=== PATIENT | male | born 1990 | race Hispanic/Latino ===

== ENCOUNTER 2024-04-11 20:10 | Inpatient (IN) | payer SELFPAY ==
[~2024-04-11] VITALS: Ht 162.6 cm; Wt 99.8 kg
[2024-04-11 22:16] LABS: BASOPHILS % 0.2 % (0.0-1.0); EOSINOPHILS # (AUTO) 0.1 (0.0-0.4); EOSINOPHILS % 0.3 % (0.0-6.0); HEMATOCRIT 49.7 % (38.2-49.6); HEMOGLOBIN 16.4 g/dL (14.0-18.0); LYMPHOCYTES # (AUTO) 2.4 (1.0-3.2); LYMPHOCYTES % 14.7 % (18.0-39.1); MEAN CORPUSCULAR HEMOGLOBIN 30.1 pg (28-32); MEAN CORPUSCULAR VOLUME 91.2 fL (81-99); NEUTROPHILS # (AUTO) 12.6 (2.1-6.9); NEUTROPHILS % 78.3 % (38.7-80.0); PLATELET COUNT 400 x10e3/uL (140-360); RED BLOOD COUNT 5.45 x10e6/uL (4.3-5.7); WHITE BLOOD COUNT 16.14 x10e3/uL (4.8-10.8)
[2024-04-11] MEDS: Morphine 4mg INJECTION 4 MG/ML INJ IV ONE (22:29)
[2024-04-11] MEDS: ACETAMINOPHEN 325 MG TAB PO ONE (22:29)
[2024-04-11] MEDS: SODIUM CHLORIDE 0.9% 1000ML 1,000 ML IV ONE (22:29)
[2024-04-11] MEDS: ONDANSETRON HCL INJ 2MG/ML 2ML 2 MG/ML VIAL IV STA (22:29)
[2024-04-11 22:30] LABS: ALBUMIN 3.8 g/dL (3.5-5.0); ALBUMIN/GLOBULIN RATIO 0.8 (0.8-2.0); ANION GAP 16.8 mmol/L (8-16); BILIRUBIN,TOTAL 0.5 mg/dL (0.2-1.2); CALCIUM 9.6 mg/dL (8.4-10.2); CREATININE, SERUM 0.86 mg/dL (0.72-1.25); POTASSIUM 3.8 mmol/L (3.5-5.1); TOTAL PROTEIN 8.7 g/dL (6.5-8.1)
[2024-04-11] MEDS ORDERED: IOPAMIDOL 370 MG/ML 100 ML INFUS..BTL INJ ONE (23:01)
[2024-04-12] VITALS (10 sets, daily range): BP systolic 125–149; BP diastolic 71–98; PULSE 75–96; RESP 16–19; TEMP 98.4–99.3; O2SAT 95–99
[2024-04-12 01:38] LABS: BILIRUBIN,URINE NEGATIVE (NEGATIVE); CLARITY,URINE CLEAR (CLEAR); COLOR,URINE YELLOW (YELLOW); GLUCOSE, URINE NEGATIVE (NEGATIVE); KETONES,URINE 1+ (NEGATIVE); LEUKOCYTE ESTERASE ,URINE NEGATIVE (NEGATIVE); NITRITE,URINE NEGATIVE (NEGATIVE); PH,URINE 5.5 (5 - 7); PROTEIN,URINE DIPSTICK NEGATIVE (NEGATIVE); URINE UROBILINOGEN 0.2 mg/dL (0.2 - 1)
[2024-04-12 01:40] LABS: BACTERIA,URINE RARE /HPF; RBC,URINE 0-5 /HPF (0-5); WBC,URINE (MAN) 0-5 /HPF (0-5)
[2024-04-12] MEDS: SODIUM CHLORIDE 0.9% 1000ML 1,000 ML IV SCH (02:08)
[2024-04-12] MEDS: Vancomycin IV 1 GM in SODIUM CHLORIDE 0.9% 250ML 250 ML IV SCH (02:08)
[2024-04-12] MEDS: Morphine 4mg INJECTION 4 MG/ML INJ IV PRN (06:29)
[2024-04-12] MEDS: ONDANSETRON HCL INJ 2MG/ML 2ML 2 MG/ML VIAL IV PRN (06:30)
[2024-04-12] MEDS: ACETAMINOPHEN 325 MG TAB PO PRN (11:35)
[2024-04-12] MEDS ORDERED: BENZONATATE 100 MG CAP PO PRN (12:30)
[2024-04-12] MEDS ORDERED: DIPHENHYDRAMINE HCL 25 MG CAP PO PRN (12:30)
[2024-04-12] MEDS ORDERED: DEXTROSE 50% SYRINGE 50 ML IV PRN (12:30)
[2024-04-12] MEDS ORDERED: HYDRALAZINE HCL 20 MG/ML VIAL IV PRN (12:30)
[2024-04-12] MEDS ORDERED: LIDOCAINE 4% PATCH TP PRN (12:30)
[2024-04-12] MEDS ORDERED: SIMETHICONE 80 MG CHEW PO PRN (12:30)
[2024-04-12] MEDS ORDERED: ACETAMINOPHEN 325 MG TAB PO PRN (12:30)
[2024-04-12] MEDS ORDERED: DOCUSATE SODIUM 100 MG CAP PO PRN (12:30)
[2024-04-12] MEDS ORDERED: POTASSIUM CHLORIDE 20 MEQ TAB CR PO PRN (12:30)
[2024-04-12] MEDS ORDERED: ALBUTEROL/IPRATROPIUM 3 ML NEB NEB PRN (12:30)
[2024-04-12] MEDS ORDERED: ONDANSETRON HCL INJ 2MG/ML 2ML 2 MG/ML VIAL IV PRN (13:15)
[2024-04-12] MEDS: HYDROCODONE/APAP 5MG-325MG TAB PO ONE (13:45)
[2024-04-12] MEDS ORDERED: SODIUM CHLORIDE 0.9% 1000ML 1,000 ML IV SCH (14:00)
[2024-04-12] MEDS: ENOXAPARIN SOD INJ 40 MG/0.4 ML SYR SC SCH (16:37)
[2024-04-12] MEDS: HYDROCODONE/APAP 5MG-325MG TAB PO PRN (16:38)
[2024-04-12] MEDS ORDERED: FENTANYL CITRATE/PF 100MCG/2 ML INJ ONE (19:44)
[2024-04-13] VITALS (9 sets, daily range): BP systolic 107–125; BP diastolic 64–95; PULSE 69–86; RESP 18–20; TEMP 97.5–98.4; O2SAT 97–100
[2024-04-13] MEDS: MELATONIN 5 MG TABLET PO PRN (00:12)
[2024-04-13 05:30] LABS: BASOPHILS % 0.3 % (0.0-1.0); EOSINOPHILS % 0.1 % (0.0-6.0); HEMATOCRIT 45.9 % (38.2-49.6); HEMOGLOBIN 14.9 g/dL (14.0-18.0); LYMPHOCYTES # (AUTO) 2.2 (1.0-3.2); LYMPHOCYTES % 14.3 % (18.0-39.1); MEAN CORPUSCULAR HEMOGLOBIN 29.6 pg (28-32); MEAN CORPUSCULAR HGB CONC 32.5 g/dL (31-35); MEAN CORPUSCULAR VOLUME 91.3 fL (81-99); MONOCYTES % 6.4 % (4.4-11.3); NEUTROPHILS # (AUTO) 12.3 (2.1-6.9); NEUTROPHILS % 78.3 % (38.7-80.0); PLATELET COUNT 393 x10e3/uL (140-360); RED BLOOD COUNT 5.03 x10e6/uL (4.3-5.7); RED CELL DISTRIBUTION WIDTH 11.9 % (11.7-14.4); WHITE BLOOD COUNT 15.63 x10e3/uL (4.8-10.8)
[2024-04-13 05:51] LABS: ALBUMIN 3.1 g/dL (3.5-5.0); ALBUMIN/GLOBULIN RATIO 0.7 (0.8-2.0); ANION GAP 31.5 mmol/L (8-16); BILIRUBIN,TOTAL 0.5 mg/dL (0.2-1.2); CALCIUM 9.3 mg/dL (8.4-10.2); CREATININE, SERUM 0.72 mg/dL (0.72-1.25); POTASSIUM 3.5 mmol/L (3.5-5.1); TOTAL PROTEIN 7.6 g/dL (6.5-8.1)
[2024-04-13] MEDS: PANTOPRAZOLE SOD 40 MG TABEC PO SCH (08:34)
[2024-04-13] MEDS: KETOROLAC TROMETHAMINE 30 MG/ML VIAL IV SCH (18:10)
[2024-04-14] VITALS (11 sets, daily range): BP systolic 116–132; BP diastolic 76–90; PULSE 56–82; RESP 17–20; TEMP 98–98.6; O2SAT 96–100
[2024-04-14 05:59] LABS: BASOPHILS % 0.4 % (0.0-1.0); EOSINOPHILS # (AUTO) 0.1 (0.0-0.4); EOSINOPHILS % 1.5 % (0.0-6.0); HEMATOCRIT 46.7 % (38.2-49.6); HEMOGLOBIN 15.1 g/dL (14.0-18.0); LYMPHOCYTES # (AUTO) 4.5 (1.0-3.2); LYMPHOCYTES % 48.3 % (18.0-39.1); MEAN CORPUSCULAR HEMOGLOBIN 29.8 pg (28-32); MEAN CORPUSCULAR HGB CONC 32.3 g/dL (31-35); MEAN CORPUSCULAR VOLUME 92.3 fL (81-99); MONOCYTES # (AUTO) 0.7 (0.2-0.8); MONOCYTES % 7.9 % (4.4-11.3); NEUTROPHILS # (AUTO) 3.8 (2.1-6.9); NEUTROPHILS % 41.5 % (38.7-80.0); PLATELET COUNT 342 x10e3/uL (140-360); RED BLOOD COUNT 5.06 x10e6/uL (4.3-5.7); RED CELL DISTRIBUTION WIDTH 12.4 % (11.7-14.4); WHITE BLOOD COUNT 9.23 x10e3/uL (4.8-10.8)
[2024-04-14 06:21] LABS: ANION GAP 16.6 mmol/L (8-16); CALCIUM 9.3 mg/dL (8.4-10.2); CREATININE, SERUM 0.78 mg/dL (0.72-1.25); POTASSIUM 3.6 mmol/L (3.5-5.1)
[2024-04-14] MEDS: CEFTRIAXONE 2 GM in SODIUM CHLORIDE 0.9% 100 ML IV SCH (15:16)
[2024-04-14 16:04] LABS: ANION GAP 14.9 mmol/L (8-16); CALCIUM 9.1 mg/dL (8.4-10.2); CREATININE, SERUM 0.82 mg/dL (0.72-1.25); POTASSIUM 3.9 mmol/L (3.5-5.1)
[2024-04-14] MEDS: KETOROLAC TROMETHAMINE 30 MG/ML VIAL ONE (16:27)
[2024-04-14] MEDS: MUPIROCIN 2% OINT 22 GM TUBE NS SCH (16:30)
[2024-04-14 16:36] LABS: HIV 1&2 AB SCREEN NON-REACTIVE (NONREACTIVE)
[2024-04-14] MEDS: HYDROCODONE/APAP 5MG-325MG TAB ONE (21:12)
[2024-04-14] MEDS: SODIUM CHLORIDE 0.9% 500ML 500 ML ONE (21:15)
[2024-04-15] VITALS: BP 127/87; PULSE 73; RESP 18; TEMP 99; O2SAT 98
[2024-04-15 04:00] VITALS: BP 132/86; PULSE 59; RESP 18; TEMP 98.2; O2SAT 99
[2024-04-15] MEDS ORDERED: HYDROCODON-ACE1 EA11 PO (07:04)
[2024-04-15] MEDS ORDERED: CIPRO500 MG PO (07:04)
[2024-04-15 08:10] VITALS: BP 119/100; PULSE 80; PULSE 83; RESP 16; RESP 18; TEMP 98.7; O2SAT 100; O2SAT 99
[2024-04-15 08:11] VITALS: BP 119/100; PULSE 85; RESP 18; TEMP 98.6; O2SAT 100
[2024-04-15 12:16] VITALS: BP 131/89; PULSE 80; RESP 19; TEMP 99.1; O2SAT 100
== END 2024-04-15 14:35 | disposition home or self-care (01) | DRG 331 ==
LOC: ER 20:15 → ERHOLD 04-12 01:51 → MED/SURG2 04-12 14:00
PROVIDERS: ADMIT Internal Medicine; ATTEND Internal Medicine
PROC: 0D9P00Z Drainage of Rectum with Drainage Device, Open Approach (ICD-10-PCS; principal; 2024-04-12 12:48)
DX: K61.1 Rectal abscess (principal); B96.20 Unspecified Escherichia coli [E. coli] as the cause of diseases classified elsewhere; K60.30 Anal fistula, unspecified; F17.210 Nicotine dependence, cigarettes, uncomplicated
CPT/HCPCS: 36415; 71045; 74177; 80048; 80053; 81001; 82948; 83605; 85025; 87040; 87071; 87075; 87186; 87205; 87390; 94799; 96365; 96366; 99284; G0433; G0435; J0696; J1650; J1885; J2270; J2405; J2543; J7030; J7040; J7050; Q9967